=== PATIENT | female | born 1940 | race Caucasian/White ===

== ENCOUNTER → 2017-09-18 | Outpatient (CLI) | payer MEDICARE ==
[~2017-09-18] MED LIST: ASPI-515 PO; AZIT250T PO; CALC-112 PO; HYDR-882 PO; HYDR25TA6 PO; LEVO75TA PO; LOSA100T6 PO; METO50TA82 PO; MULT-513 PO; OMEG1CAP23 PO; PANT40TA3 PO; POTA20TA89 PO; PRAV40TA2 PO; Potassium Chloride PO; WARF-36 PO
== END | disposition home or self-care (01) ==
LOC: RAD 07:22
PROVIDERS: ATTEND Family Medicine
DX: M17.11 Unilateral primary osteoarthritis, right knee (principal); M25.551 Pain in right hip; E03.9 Hypothyroidism, unspecified
CPT/HCPCS: 36415; 73523; 84443